=== PATIENT | male | born 1955 | race Caucasian/White ===

== ENCOUNTER → 2018-12-10 | Outpatient (CLI) | payer MEDICARE ==
--- NOTE | 2018-12-10 11:47 | RADIOLOGY REPORT (SQ) ---
EXAM DESCRIPTION: MRI RT LOWER JOINT WITHOUT COMPLETED DATE/TIME: 12/10/2018 9:36 am REASON FOR STUDY: M23.91 UNSPECIFIED INTERNAL DERANGEMENT OF RIGHT KNEE M23.91 UNSPECIFIED INTERNAL DERANGEMENT OF RIGHT KNEE COMPARISON: None. TECHNIQUE: Rightknee images acquired and stored on PACS. Multiplanar images include fat sensitive s equences as T1, water sensitive sequences as FST2 or STIR, cartilage sensitive sequences as FSPD, and gradient echo sequences. LIMITATIONS: None. FINDINGS: JOINT AND BURSAE: Small suprapatellar knee joint effusion. 3 x 1 cm Milligan's cyst. BONE CORTEX AND MARROW: No alteration of signal to suggest marrow replacement. No worrisome bone lesi ons. No occult fracture. ACL: Distal attachment of the ACL is indistinct on the sagittal T1 weighted images 12-14. Intact fib ers in this area on the T2 weighted images. This likely represents an ACL strain PCL: Intact. MCL: Intact. No periligamentous edema or fluid. LCL: Intact. No periligamentous edema or fluid. MEDIAL MENISCUS: No discrete tear. Mild increased intrameniscal signal along the medial meniscus mid body on coronal image 19 and 20. No parameniscal cyst. LATERAL MENISCUS: No tears. No abnormal signal. MEDIAL COMPARTMENT: Mild chondromalacia. No bone bruises or reactive marrow edema. No osteophytes. LATERAL COMPARTMENT: Mild chondromalacia. No bone bruises or reactive marrow edema. No osteophytes. PATELLA: No chondromalacia. No subchondral cysts. Medial and lateral retinacula intact. EXTENSOR MECHANISM: Intact. Quadriceps and patella tendons normal. SOFT TISSUES: Adjacent muscles and subcutaneous tissues normal. Normal flow void in popliteal artery and vein. OTHER: No other significant finding. IMPRESSION: Knee joint effusion and Milligan's cyst. High signal at the distal attachment of the anterior cruciate ligament worrisome for strain Increased intrameniscal signal midbody medial meniscus without discrete tear TECHNICAL DOCUMENTATION: JOB ID: [id number]- All Rights Reserved Reading location - IP/workstation name: [email or web address]
== END ==
LOC: RAD 08:56
PROVIDERS: ATTEND Orthopaedic Surgery
DX: M23.91 Unspecified internal derangement of right knee (principal); M71.21 Synovial cyst of popliteal space [Baker], right knee; M25.461 Effusion, right knee

== ENCOUNTER 2019-01-01 14:18 | Emergency (ER) | payer MEDICARE ==
[2019-01-01] MEDS ORDERED: OXYCODONE-ACETAMINOPHEN 5-325 MG TABLET PO ONE (15:15)
--- NOTE | 2019-01-01 15:21 | ER Document Report ---
ED Medical Screen (RME) - General Chief Complaint: Fall Stated Complaint: FALL INJURY Time Seen by Provider: 01/01/19 15:12 Primary Care Provider: MALISSA NUNO,RADHA Lopez MD [Primary Care Provider] - Follow up as needed Mode of Arrival: Ambulatory Notes: Patient is a 63-year-old male comes to emergency room with a complaint of sustaining a fall off the back end of a flatbed semitruck. Patient states he was attempting to adjust some materials on the truck when a portion of it gave way and he tumbled backwards catching his feet on a little raised lip on the back of the bed. He tumbled down approximately 5 foot landing on asphalt. He is complaining of neck pain which she states is very minor, left shoulder pain, pelvic pain and hip pain. Patient does state that after landing on the ground he is tumbled backward and he bumped the back of his head. He states he was told that he had a very brief loss of consciousness by a bystander. Patient states that the bystander told him it was almost instant recovery but he did appear to be out for a second patient denies any headache he denies any nausea or vomiting denies any pain in the head. Patient does not take any anticoagulants. He only has a past medical history of hypertension is on metoprolol for that. His primary area of concern is his low back and pelvic area. He is ambulatory but barely he hobbles to get to where he is going. He also has an abrasion to his left elbow. Patient states that the event occurred approximately 11:30 AM this morning. He laid on the concrete/asphalt because he had instant pain in his low back and wait until it subsided some. He then attempted to go back to work and the pain in the low back and left hip increased to where he had to drive himself to the hospital. TRAVEL OUTSIDE OF THE [place] IN LAST 30 DAYS: No - HPI Onset: Other - 11:30 AM this morning Onset/Duration: Sudden Quality of pain: Sharp, Stabbing, Throbbing Pain Level: 4 Associated Symptoms: denies: Abdominal pain, Dizzy/lightheaded, Nausea, Shortness of breath Exacerbated by: Standing, Movement, Walking Relieved by: Denies - Related Data Allergies/Adverse Reactions: No Known Allergies Allergy (Verified 01/01/19 14:19) Past Medical History - General Information source: Patient - Social History Cigarette use (# per day): No Chew tobacco use (# tins/day): No Frequency of alcohol use: None Drug Abuse: None Lives with: Family Family history: Reviewed & Not Pertinent Review of Systems - Review of Systems Constitutional: No symptoms reported EENT: No symptoms reported Cardiovascular: No symptoms reported Respiratory: No symptoms reported Gastrointestinal: No symptoms reported Genitourinary: No symptoms reported Male Genitourinary: No symptoms reported Musculoskeletal: See HPI, Back pain, Joint pain, Muscle pain, Neck pain Skin: No symptoms reported Hematologic/Lymphatic: No symptoms reported Neurological/Psychological: No symptoms reported -: Yes All other systems reviewed and negative Physical Exam - Vital signs Vitals: Temp Pulse Resp BP Pulse Ox 98.0 F 73 16 143/77 H 100 01/01/19 14:25 01/01/19 14:25 01/01/19 14:25 01/01/19 14:25 01/01/19 14:25 Interpretation: Hypertensive - Notes Notes: PHYSICAL EXAMINATION: GENERAL: Patient well-nourished well-developed 63-year-old male who is in no apparent distress on physical exam today however he does appear to be in a moderate amount of pain and discomfort. HEAD: Atraumatic, normocephalic. Further examination of patient's head does not show any signs of abrasions or hematomas. EYES: Pupils equal round and reactive to light, extraocular movements intact, sc suha anicteric, conjunctiva are normal. ENT: Nares patent, oropharynx clear without exudates. Moist mucous membranes. NECK: Examination cervical spine shows some mild tenderness to palpation around the lower cervical spine area. Patient has full range of motion with only mild discomfort. LUNGS: Breath sounds clear to auscultation bilaterally and equal. No wheezes rales or rhonchi. HEART: Regular rate and rhythm without murmurs Musculoskeletal: examination patient's areas of concern #1) left shoulder examination of this area shows patient has some mild tenderness along the AC joint. There is no sign of deformity. Patient has moderate tenderness to palpation anterior rotator cuff area as well. He has good requisition approver strength distally. He has good vascular exam as well. Palpation of the clavicle does not show any deformity or pain or tenderness. Patient is unable to raise the arm past shoulder height. There are no signs of abrasions or ecchymosis on the upper left shoulder area. #2) left elbow shows multiple abrasions on only a quick glance secondary to being wrapped. He has full range of motion at the elbow with flexion extension as well as rotation against resistance and no discomfort. Patient has good cap refill in the nailbeds of the fingers of the left hand. #3) left hip area shows mild pain and discomfort along the lateral aspect of the left hip and the posterior aspect of the left hip. There is no pain or discomfort on the anterior groin area to palpation. Patient has some decreased strength against resistance on leg raises. Pain seems to be originated at the hip level. #4) pelvic area exam shows mild tenderness to forcible pressure applied to both hips at one time. Although does not appear to be unstable at this time. Patient displays good femoral pulses bilaterally. Straight leg raises are positive to about 25 degrees bilaterally. #5) lumbar spine area shows mild tenderness to palpation in the lower L4-L5 area. Again no notable discolorations abrasions or hematomas noted. Patient has sensation distally equally bilaterally. No sign of saddle paresthesia or foot drop. He has good flexion-extension of the ankles and feet bilaterally. NEUROLOGICAL: Normal speech, normal gait. Normal sensory, motor exams PSYCH: Normal mood, normal affect. SKIN: Warm, Dry, normal turgor, no rashes or lesions noted. Course - Re-evaluation Re-evalutation: 01/01/19 15:35 Patient's neurologic exam is intact. I felt at this time given the no history of anticoagulation patient suffering a bump on the head with mild LOC occurring at 1130 this morning and he is still having no neurologic deficits do not feel it is necessary to CT his head at this time. - Vital Signs Vital signs: Temp Pulse Resp BP Pulse Ox 98.0 F 73 16 143/77 H 100 01/01/19 14:25 01/01/19 14:25 01/01/19 14:25 01/01/19 14:25 01/01/19 14:25 Doctor's Discharge - Discharge Referrals: MALISSA NUNO,RADHA Lopez MD [Primary Care Provider] - Follow up as needed
--- NOTE | 2019-01-01 16:30 | RADIOLOGY REPORT (SQ) ---
EXAM DESCRIPTION: CERV SP 3 VIEW OR LESS COMPLETED DATE/TIME: 01/01/2019 4:06 pm REASON FOR STUDY: fall from height COMPARISON: None. NUMBER OF VIEWS: Three views. TECHNIQUE: AP, lateral and odontoid radiographic images acquired of the cervical spine. LIMITATIONS: Patient positioning FINDINGS: MINERALIZATION: Normal. ALIGNMENT: Anatomic. VERTEBRAE: The C7 vertebral body is obscured by the patient's shoulders. No compression fracture wit hin the visualized cervical spine from C1 through C6. DISCS: Intervertebral disc spacers at C5-C6 and C6-C7. There is mild degenerative disc disease and o steophytosis at C2-C3 and C3-C4. HARDWARE: Anterior orthopedic hardware at C5-C7. SOFT TISSUES: No calcifications. Lung apices clear. IMPRESSION: Obscure C7 vertebral body. Postsurgical changes at the cervical spine with no radiograp hic evidence for compression fracture at the visualized cervical spine from C1 through C6. Please no te that CT is more sensitive to evaluate for acute fracture of the cervical spine. TECHNICAL DOCUMENTATION: JOB ID: [id number] 2010 [facility]- All Rights Reserved Reading location - IP/workstation name: [email or web address]
--- NOTE | 2019-01-01 16:37 | RADIOLOGY REPORT (SQ) ---
EXAM DESCRIPTION: PELVIS AP COMPLETED DATE/TIME: 01/01/2019 4:06 pm REASON FOR STUDY: fall COMPARISON: None. NUMBER OF VIEWS: One view TECHNIQUE: AP Pelvis LIMITATIONS: None. FINDINGS: There is no acute fracture or dislocation. The bilateral hip joints are maintained. The sacroiliac joints are symmetrical. Degenerative changes are noted at the visualized lower lumbar spi ne. IMPRESSION: No radiographic evidence for acute fracture of the pelvis. COMMENT: Pelvic fractures are often occult on plain radiographs. If there is strong clinical suspic ion for pelvic fracture, recommend CT or MR. TECHNICAL DOCUMENTATION: JOB ID: [id number] 2010 [employer]- All Rights Reserved Reading location - IP/workstation name: [email or web address]
--- NOTE | 2019-01-01 16:40 | RADIOLOGY REPORT (SQ) ---
EXAM DESCRIPTION: SHOULDER LEFT 2 OR MORE VIEWS COMPLETED DATE/TIME: 01/01/2019 4:06 pm REASON FOR STUDY: fall COMPARISON: None. NUMBER OF VIEWS: Three views. TECHNIQUE: Internal rotation, external rotation, and Y view images acquired of the left shoulder. RADIATION DOSE: Poor LIMITATIONS: None. FINDINGS: MINERALIZATION: Normal. BONES: No acute fracture or dislocation. JOINTS: No dislocation. Degenerative changes are noted at the acromioclavicular joint. VISUALIZED LUNGS AND RIBS: No pneumothorax. No displaced rib fracture. SOFT TISSUES: No radiopaque foreign body. IMPRESSION: No radiographic evidence for acute fracture or dislocation at the left shoulder. TECHNICAL DOCUMENTATION: JOB ID: [id number] 2010 [employer]- All Rights Reserved Reading location - IP/workstation name: [email or web address]
--- NOTE | 2019-01-01 16:45 | RADIOLOGY REPORT (SQ) ---
EXAM DESCRIPTION: L SPINE WHOLE COMPLETED DATE/TIME: 01/01/2019 4:06 pm REASON FOR STUDY: fall COMPARISON: None. NUMBER OF VIEWS: Five views including obliques. TECHNIQUE: AP, lateral, oblique, and sacral radiographic images acquired of the lumbar spine. LIMITATIONS: None. FINDINGS: MINERALIZATION: Normal. SEGMENTATION: Normal. No transitional anatomy. ALIGNMENT: There is mild levoscoliosis of the lumbar spine. VERTEBRAE: There is mild anterior wedging of T11, T12 and L1 vertebral bodies, of indeterminate age. DISCS: Multilevel disc space narrowing with osteophytes. POSTERIOR ELEMENTS: Facet arthropathy is noted. There is no evidence for pars defect. HARDWARE: None in the spine. PARASPINAL SOFT TISSUES: Normal. PELVIS: SI joints intact. IMPRESSION: Degenerative changes at the lumbar spine. Mild anterior wedging of T11, T12 and L1 vert ebral bodies, of indeterminate age. Please correlate with point tenderness. If there is persistent clinical concern for acute fracture, bone scan or MRI can be obtained for further evaluation. TECHNICAL DOCUMENTATION: JOB ID: [id number] 2010 [employer]- All Rights Reserved Reading location - IP/workstation name: [email or web address]
[2019-01-01] MEDS ORDERED: HYDROMORPHONE HCL INJ/PF 2 MG/ML AMPULE IV ONE (17:11)
--- NOTE | 2019-01-01 18:56 | RADIOLOGY REPORT (SQ) ---
EXAM DESCRIPTION: MRI LUMBAR SPINE WITHOUT COMPLETED DATE/TIME: 01/01/2019 6:31 pm REASON FOR STUDY: t11-l1 wedge fracture COMPARISON: None. TECHNIQUE: Sagittal and Axial imaging includes T1, T2, STIR and gradient echo sequences. Coronal T2/ HASTE imaging. LIMITATIONS: None. FINDINGS: VISUALIZED UPPER ABDOMEN: Limited evaluation. No acute or suspicious findings suggested. SEGMENTATION: No transitional anatomy. The lowest well-developed disc space is labeled L5-S1. ALIGNMENT: Anatomic. VERTEBRAE: Intact. No compression changes are seen. Schmorl's node in the inferior endplate of L3. BONE MARROW: Modic type 1 changes at L4-5 and L3-4. DISC SIGNAL: All the discs are narrowed. Decreased signal intensity. POSTERIOR ELEMENTS: Generally intact. No pars defect evident. HARDWARE: None in the spine. CORD AND CONUS: Normal in size and signal intensity. Conus at the L1 level. SOFT TISSUES: No aortic aneurysm seen. No bulky retroperitoneal adenopathy or mass. No paraspinal mas s or fluid. T11-12: Very mild concentric disc bulge with no central canal or foraminal stenosis. T12-L1: No significant spinal stenosis or exit foraminal stenosis. L1-L2: Right foraminal disc bulge. This also displaces the traversing nerve root dorsally. L2-L3: Mild concentric disc bulge with no central canal or foraminal stenosis. L3-L4: Broad-based disc bulge with mild ligament and facet hypertrophy. Mild central canal stenosis. This may displace the traversing nerve root on the left. L4-L5: Mild concentric disc bulge with no central canal or foraminal stenosis. Mild facet and ligame nt hypertrophy. L5-S1: Mild concentric disc bulge with no central canal or foraminal stenosis. LOWER THORACIC: Incompletely imaged. No stenosis seen. SACRUM: Visualized upper sacrum intact. OTHER: No other significant findings. IMPRESSION: No fractures. Disc bulges as described. Most significant findings are at L1-2 and L3-4 . TECHNICAL DOCUMENTATION: JOB ID: [id number] [employer]- All Rights Reserved Reading location - IP/workstation name: [email or web address]
[2019-01-01] MEDS ORDERED: KETOROLAC TROMETHAMINE INJ/PF 30 MG/1 ML SDV IV ONE (19:13)
[2019-01-01] MEDS ORDERED: DIPH/PERTUSS(ACELL)/TETANUS VAC/PF 0.5 ML SYR (>=10YO) IM ONE (19:15)
--- NOTE | 2019-01-01 19:20 | ER Document Report ---
ED Fall - General Chief Complaint: Fall Stated Complaint: FALL INJURY Time Seen by Provider: 01/01/19 15:12 Primary Care Provider: RADHA LEONARDO JR, MD [NO LOCAL MD] - Follow up as needed Mode of Arrival: Ambulatory Information source: Patient Notes: I originally saw patient on his first presentation into the triage area. I kept following patient until I saw her he was up for review and picked him up to find a possibly had some areas need to be readdressed. Following is my original H&P note. Patient is a 63-year-old male comes to emergency room with a complaint of sustaining a fall off the back end of a flatbed semitruck. Patient states he was attempting to adjust some materials on the truck when a portion of it gave way and he tumbled backwards catching his feet on a little raised lip on the back of the bed. He tumbled down approximately 5 foot landing on asphalt. He is complaining of neck pain which she states is very minor, left shoulder pain, pelvic pain and hip pain. Patient does state that after landing on the ground he is tumbled backward and he bumped the back of his head. He states he was told that he had a very brief loss of consciousness by a bystander. Patient states that the bystander told him it was almost instant recovery but he did appear to be out for a second patient denies any headache he denies any nausea or vomiting denies any pain in the head. Patient does not take any anticoagulants. He only has a past medical history of hypertension is on metoprolol for that. His primary area of concern is his low back and pelvic area. He is ambulatory but barely he hobbles to get to where he is going. He also has an abrasion to his left elbow. Patient states that the event occurred approximately 11:30 AM this morning. He laid on the concrete/asphalt because he had instant pain in his low back and wait until it subsided some. He then attempted to go back to work and the pain in the low back and left hip increased to where he had to drive himself to the hospital. TRAVEL OUTSIDE OF THE [place] IN LAST 30 DAYS: No - HPI Occurred: This morning Where: Outdoors, Public place, Work Context: Lost balance, Fell from height Associated symptoms: Lost consciousness Location of injury/pain: Back, Elbow, Hip, Neck, Pelvic, Shoulder, Upper extremity Quality of pain: Sharp, Stabbing, Throbbing Severity: Moderate Pain Level: 4 - Related data Allergies/Adverse Reactions: No Known Allergies Allergy (Verified 01/01/19 14:19) Past Medical History - General Information source: Patient - Social History Smoking Status: Never Smoker Cigarette use (# per day): No Chew tobacco use (# tins/day): No Smoking Education Provided: No Frequency of alcohol use: None Drug Abuse: None Lives with: Family Family History: Reviewed & Not Pertinent Review of Systems - Review of Systems Constitutional: No symptoms reported EENT: No symptoms reported Cardiovascular: No symptoms reported Respiratory: No symptoms reported Gastrointestinal: No symptoms reported Genitourinary: No symptoms reported Male Genitourinary: No symptoms reported Musculoskeletal: See HPI, Back pain, Joint pain, Muscle pain, Neck pain Skin: No symptoms reported Hematologic/Lymphatic: No symptoms reported Neurological/Psychological: See HPI, Lost consciousness -: Yes All other systems reviewed and negative Physical Exam - Vital signs Vitals: Temp Pulse Resp BP Pulse Ox 98.0 F 73 16 143/77 H 100 01/01/19 14:25 01/01/19 14:25 01/01/19 14:25 01/01/19 14:25 01/01/19 14:25 Interpretation: Normal, Hypertensive - Notes Notes: PHYSICAL EXAMINATION: GENERAL: Patient is a well-nourished well-developed 63-year-old male who is in no apparent distress on physical exam this afternoon. He does however appear in present with moderate amount of pain and discomfort. He is having difficulty with ambulation secondary to pain and discomfort. HEAD: Atraumatic, normocephalic. EYES: Pupils equal round and reactive to light, extraocular movements intact, sclera anicteric, conjunctiva are normal. ENT: Nares patent, oropharynx clear without exudates. Moist mucous membranes. NECK: Normal range of motion, supple without lymphadenopathy LUNGS: Breath sounds clear to auscultation bilaterally and equal. No wheezes rales or rhonchi. HEART: Regular rate and rhythm without murmurs ABDOMEN: Soft, nontender, nondistended abdomen. No guarding, no rebound. No masses appreciated. Musculoskeletal: Musculoskeletal: examination patient's areas of concern #1) left shoulder examination of this area shows patient has some mild tenderness along the AC joint. There is no sign of deformity. Patient has moderate tenderness to palpation anterior rotator cuff area as well. He has good transitional kindergarten teacher strength distally. He has good vascular exam as well. Palpation of the clavicle does not show any deformity or pain or tenderness. Patient is unable to raise the arm past shoulder height. There are no signs of abrasions or ecchymosis on the upper left shoulder area. #2) left elbow shows multiple abrasions on only a quick glance secondary to being wrapped. He has full range of motion at the elbow with flexion extension as well as rotation against resistance and no discomfort. Patient has good cap refill in the nailbeds of the fingers of the left hand. #3) left hip area shows mild pain and discomfort along the lateral aspect of the left hip and the posterior aspect of the left hip. There is no pain or discomfort on the anterior groin area to palpation. Patient has some decreased strength against resistance on leg raises. Pain seems to be originated at the hip level. #4) pelvic area exam shows mild tenderness to forcible pressure applied to both hips at one time. Although does not appear to be unstable at this time. Patient displays good femoral pulses bilaterally. Straight leg raises are positive to about 25 degrees bilaterally. #5) lumbar spine area shows mild tenderness to palpation in the lower L4-L5 area. Again no notable discolorations abrasions or hematomas noted. Patient has sensation distally equally bilaterally. No sign of saddle paresthesia or foot drop. He has good flexion-extension of the ankles and feet bilaterally. NEUROLOGICAL: Cranial nerves grossly intact. Normal speech, normal gait. Normal sensory, motor exams PSYCH: Normal mood, normal affect. SKIN: Warm, only area of abnormalities patient's left elbow which shows moderate amount of abrasion. There is no sign of laceration and the area does not appear to be contused or no sign of hematoma. Course - Re-evaluation Re-evalutation: 01/01/19 19:22 Patient seen here was basically benign. The x-rays came back showed a possible wedge fractures at [id number]. And suggested MRI. MRI was performed that did not show any fractures. It did show moderate amount of disc bulging at those locations and beyond. There was no sign of cauda equina. No other major abnormalities. We are doing discharge patient home with a steroid pack, pain medication, and muscle relaxer. - Vital Signs Vital signs: Temp Pulse Resp BP Pulse Ox 98.0 F 73 16 143/77 H 100 01/01/19 14:25 01/01/19 14:25 01/01/19 14:25 01/01/19 14:25 01/01/19 14:25 Discharge - Discharge Clinical Impression: Acute herniation of intervertebral disc Contusion of left hip Qualifiers: Encounter type: initial encounter Qualified Code(s): S70.02XA - Contusion of left hip, initial encounter Shoulder strain Qualifiers: Encounter type: initial encounter Laterality: left Qualified Code(s): S46.912A - Strain of unspecified muscle, fascia and tendon at shoulder and upper arm level, left arm, initial encounter Condition: Stable Disposition: HOME, SELF-CARE Instructions: Herniated Disc ([facility]), Shoulder Injury ([facility]), Contusion ([facility]) Additional Instructions: Home and rest. Ice to all parts the body that hurt 3-4 times a day for the next 2 to 3 days. You may continue to use ibuprofen also every 8 hours 800 mg with food. Should you have any concerns should you have any difficulty with your mentation should you have uncontrollable vomiting return to ER for recheck. Prescriptions: Cyclobenzaprine HCl [Flexeril 10 mg Tablet] 10 mg PO TID PRN #21 tablet PRN Reason: Oxycodone HCl/Acetaminophen [Percocet 5-325 mg Tablet] 1 tab PO ASDIR PRN #15 tab PRN Reason: Prednisone 10 mg PO ASDIR 6 Days #1 tab.ds.pk Forms: Elevated Blood Pressure, Return to Work Referrals: MALISSA NUNO,RADHA Lopez MD [NO LOCAL MD] - Follow up as needed
[2019-01-01] MEDS ORDERED: HYDROCODONE/ACETAMINOPHEN 5-325 MG (6 TAB/ER DISP) PO PRN (20:11)
[2019-01-01 20:19] VITALS: BP 128/68
== END 2019-01-01 20:18 | disposition home or self-care (01) ==
LOC: ER 14:18
DX: S09.90XA Unspecified injury of head, initial encounter (principal); S70.02XA Contusion of left hip, initial encounter; S46.912A Strain of unspecified muscle, fascia and tendon at shoulder and upper arm level, left arm, initial encounter; S50.312A Abrasion of left elbow, initial encounter; M54.2 Cervicalgia; R10.2 Pelvic and perineal pain; M25.552 Pain in left hip; M25.551 Pain in right hip; M54.5 Low back pain; M25.522 Pain in left elbow; W17.89XA Other fall from one level to another, initial encounter; Y99.0 Civilian activity done for income or pay; Z23 Encounter for immunization
CPT/HCPCS: 99284; 90471; 96374; 72148; 72040; 72110; 72170; 73030; J1885; A9270 ×2; 90715